=== PATIENT | male | born 1990 | race Caucasian/White ===

== ENCOUNTER → 2021-05-16 | Outpatient (CLI) | payer OTHER, BC ==
--- NOTE | 2021-05-16 13:54 | XR ---
EXAMINATION TYPE: XR hand complete RT DATE OF EXAM: 05/16/2021 COMPARISON: NONE HISTORY: Pain TECHNIQUE: Three views are submitted. FINDINGS: There is a fracture involving the tuft of distal phalanx fourth digit. Soft tissue edema noted. Remaining osseous structures intact. IMPRESSION: 1. Fracture tuft distal phalanx fourth digit.
== END | disposition home or self-care (01) ==
LOC: RADXRMAIN 13:37
PROVIDERS: ATTEND Emergency Medicine
DX: S62.666A Nondisplaced fracture of distal phalanx of right little finger, initial encounter for closed fracture (principal); X58.XXXA Exposure to other specified factors, initial encounter

== ENCOUNTER 2021-11-06 14:48 | Emergency (ER) | payer BC, OTHER ==
[2021-11-06 15:02] VITALS: BP 124/85; PULSE 110; RESP 20; TEMP 98.1
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
== END 2021-11-06 16:03 | disposition home or self-care (01) ==
LOC: EC 14:48
DX: S51.851A Open bite of right forearm, initial encounter (principal); V00-Y99 External causes of morbidity
CPT/HCPCS: 99283